=== PATIENT | male | born 1950 | race Caucasian/White ===

== ENCOUNTER 2018-09-23 11:16 | Emergency (ER) | payer OTHER, BC ==
--- NOTE | 2018-09-23 11:43 | CPEKG ---
Test Reason : OPEN Blood Pressure : / mmHG Vent. Rate : 070 BPM Atrial Rate : 070 BPM P-R Int : 172 ms QRS Dur : 098 ms QT Int : 403 ms P-R-T Axes : 052 044 068 degrees QTc Int : 435 ms Sinus rhythm Confirmed by Milan Mas ([id number]) on 09/23/2018 11:42:43 AM Referred By: Confirmed By:Milan Mas
--- NOTE | 2018-09-23 12:05 | EDPHY ---
H & P Stated Complaint: CP Time Seen by Provider: 09/23/18 11:37 HPI/ROS: Chief Complaint: Chest discomfort HPI: A 68-year-old male with a history of hypertension is presenting with some mild chest discomfort and lightheadedness which began at 7:00 a.m. This morning. Patient states for the last 24 hr she has been feeling mildly unwell. He did drive from [place] to [place] overnight. He was the passenger in the vehicle. At 7:00 a.m. This morning while preparing to get an airplane he had episode of some moderate discomfort in his central chest. Got a little sweaty and felt nauseated and had a vertigo sensation. He has had similar episode in the past was seen emergency department and had a negative workup at that time. He did have a normal stress test just 2 months ago. No shortness of breath. No leg pain or swelling. He says that over the course of the last few hours in the plane flight he has felt better. He is currently without complaint and here now just to make sure that everything is okay. No family history of coronary artery disease or sudden cardiac . Currently without complaints. ROS: 10 systems were reviewed and were negative except those elements noted in the HPI. PMH: Hypertension Social History: No smoking, occasional alcohol Family History: non-contributory Physical Exam: Gen: Awake, Alert, No Distress HEENT: Nose: no rhinorrhea Eyes: PERRLA, EOMI Mouth: Moist mucosa Neck: Supple, no JVD Chest: nontender, lungs clear to auscultation Heart: S1, S2 normal, no murmur Abd: Soft, non-tender, no guarding Back: no CVA tenderness, no midline tenderness Ext: no edema, non-tender Skin: no rash Neuro: CN II-XII intact, Sensation grossly intact, Strength 5/5 in bilateral upper and lower extremities - Personal History Current Tetanus/Diphtheria Vaccine: Yes - Medical/Surgical History Hx Asthma: No Hx Chronic Respiratory Disease: No Hx Diabetes: No Hx Cardiac Disease: Yes Hx Renal Disease: No Hx Cirrhosis: No Hx Alcoholism: No Other PMH: hyperlipidemia, HTN, GERD, sleep apnea - Social History Smoking Status: Former smoker Constitutional: Initial Vital Signs Temperature (C) 37.0 C 09/23/18 11:19 Heart Rate 73 09/23/18 11:19 Respiratory Rate 18 09/23/18 11:19 Blood Pressure 184/91 H 09/23/18 11:19 O2 Sat (%) 90 L 09/23/18 11:19 O2 Delivery Mode Room Air Allergies/Adverse Reactions: No Known Allergies Allergy (Unverified 09/23/18 11:23) Medical Decision Making - Diagnostics EKG Interpretation: ECG time 11:38 a.m., sinus rhythm with a rate of 70, normal axis, normal intervals, no acute ST or T-wave changes. Impression: Normal ECG. ED Course/Re-evaluation: 68-year-old male with episode of chest discomfort this morning which has since resolved. Symptoms were 5 hr ago. Current troponin is normal at 0.01. Normal ECG. Symptoms consistent with mild gastrointestinal process. He had a normal stress test 2 months ago. Currently has a normal exam, normal vital signs as without complaint. Plan will be to discharge with reassurance, follow up with primary care physician will returns home. - Data Points Laboratory Results: 09/23/18 11:42 POC Troponin I 0.01 ng/mL ng/mL (0.00-0.08) Point of Care Test Results: Chemistry 09/23/18 11:42 POC Troponin I 0.01 ng/mL ng/mL (0.00-0.08) Departure - Departure Disposition: Home, Routine, Self-Care Clinical Impression: Chest pain Condition: Good Instructions: Chest Pain (ED) Additional Instructions: Follow up with primary care physician in 4-5 days for re-evaluation. Return to the emergency department for increasing chest pain, shortness of breath, fainting, uncontrolled nausea or vomiting, or any other concerns. Referrals: STEPHIE BOSCH [Other] - As per Instructions
[2018-09-23 12:24] VITALS: BP 161/87
== END 2018-09-23 12:24 | disposition home or self-care (01) ==
DX: R07.9 Chest pain, unspecified (principal); I10 Essential (primary) hypertension; E78.5 Hyperlipidemia, unspecified
CPT/HCPCS: 84484-ER